=== PATIENT | male | born 1980 | race Caucasian/White ===

== ENCOUNTER 2023-05-08 16:35 | Outpatient (OUT) | payer SELFPAY ==
--- NOTE | 2023-05-08 | XR_ITS ---
The [address] [address] Patient Name: MAIRA WILSON MRN: [id number] date: 1980 Sex: M Assigned Patient Location: RAD Current Patient Location: RAD Accession/Order Number: [id number] Exam Date: 05/08/2023 17:10 Report Date: 05/08/2023 18:18 At the request of: CODEY VÁSQUEZ Procedure: XR chest 2V EXAM: XR chest 2V HISTORY: R07.9; Possible pneumonia COMPARISON: None. TECHNIQUE: Upright PA and lateral chest x-ray FINDINGS: The heart is not enlarged and the vasculature is not distended. No acute infiltrate, effusion or pneumothorax is identified. The osseous structures are grossly intact. XR/XR chest 2V IMPRESSION: No acute infiltrate or evidence of cardiac decompensation. Comparison with a previous study may be helpful in determining the chronicity of these findings. Electronically authenticated by: DOV REINA Date: 05/08/2023 18:18
== END 2023-05-08 16:36 | disposition home or self-care (01) ==
PROVIDERS: PCP Internal Medicine; Visit Provider Physician Assistant
DX: R50.9 Fever, unspecified (principal); R07.9 Chest pain, unspecified; Z87.891 Personal history of nicotine dependence
CPT/HCPCS: 71046

== ENCOUNTER 2025-05-21 13:35 | Outpatient (OUT) | payer BC, SELFPAY ==
--- OUTSIDE RECORDS SUMMARY | 2025-05-21 08:28 | XMS_ITS | Continuity of Care Document ---
Author Organization [facility] Address [address] [place] [address] Phone Care Team Providers Care Advertising Inserter Name Role Phone NO FAMILY, PHYSICIAN Primary Care Provider Alba Etienne APRN Attending Provider Care Teams Patient Care Team Team Status: Active Member Role/Relationship Status Dates PHYSICIAN NO FAMILY Primary Care Provider Active Patient Care Team Team Status: Inactive Member Role/Relationship Status Dates PHYSICIAN NO FAMILY Primary Care Provider Active Start: May 21, 2025 End: May 21, 2025Alba Prakash APRN FOOT SETTER-CAttending ProviderActive Start: May 21, 2025 End: May 21, 2025 Chief Complaint and Reason for Visit Chief Complaint Admit Date feeling under the weather May 21, 2025 1:02pm Reason for Visit Admit Date Cough May 21, 2025 1:02pm Allergies, Adverse Reactions, Alerts Allergen Type Severity Reaction Last Updated Verified Status No Known Allergies Allergy Unknown May 21, 2025 1:04pmYesActive Social History Smoking Status Status Start Date End Date Date of Observa tion Never smoked tobacco (finding) March 06, 2024 2:58pm Observation Status Observation Response Date of Response Legal Sex Male (finding) Sex Assigned At BirthMaleSeptember 1979 Family History Relationship Condition Age at Onset Recorded Date/T reji mother Hypertension Unknown Problems Active Problems Problem Diagnosis/Recorded Date Onset Date Stat us Cough May 21, 2025 1:23pm Unknown A ctive Inactive/Resolved Problems Problem Diagnosis/Recorded Date Onset Date Stat us Acute maxillary sinusitis March 06, 2024 2:09pm Unknown Resolved Contact dermatitis February 12, 2024 2:14pm Unknown Resolved Medications Medication Status Dose Units Route Directions Qty Days Refills S tart Date Stop Date End Date Reason(s) Instructions Adherence Methylprednisolone (Medrol (Yosvany)) 4 mg tablets,dose pa ck Discontinued 0 POper package iguhdrmbte924Jxrqkcuhn 2nd, 2024 11:00pmSe2023 1:51pmPO PER PKG DIRTriamcinolone Acetonide 0.1 % ugdplMhgyxyrirdbv0IJBFPT TOPICALTwice ajuid3392Nlfxfludz2023 11:00pmMarch 06, 2024 1:55pm Contact dermatitis Unspecified contact dermatitis, unspecified causeNo Name (No Known Home Meds) ActiveSe2023 11:00pm Vital Signs Vital Reading Result Reference Range Collection Date/Time Height 68 [in_i] May 21, 2025 1:68sqXoilur11.93 kgDecember 2024 1:05pmBody Dpbdwntecys036.5 [degF]97.6-99.0December 2024 1:05pmHeart Ajrj370 /min 60-100Dece2024 1:05pmOxygen saturation by Pulse uekhgkso59 %95-100 May 21, 2025 1:05pmBP Amvjaqov329 mm[Hg]100-140December 2024 1:05pm BP Ulcclrgpy94 mm[Hg]60-100December 2024 1:05pmBMI (Body Mass Index)24.7 kg/g3Guxduras 2024 1:05pm Advance Directives Advance Directive Response Recorded Date/ Time Advance Directives No February 1:53pm Insurance Providers Guarantor Yann Trujillo Address [address] [facility] [address]ld[place] Info.Home Phone: Payer Group Member ID Coverage Type Subscriber Relationship to Subscriber Effective Date Expiration Date Johnathan MORGAN [id number] L Duston Id: [id number] [address] [facility] [address] Home Phone: Email: Encounters Encounter Location(s) Arrival/Admit Date Discharge/Departure Date Discharge/Departure Disposition Provider(s) Departed Physician/ Provider Office Visit -[facility] May 21, 2025 1:02pm May 21, 2025 1:27pm Discharged to home care or self care (routine discharge) Alba Prakash APRN CNP Recent Diagnosis Onset Date Admit Date Cough Unknown May 21 025 1:02pm Assessments Diagnosis Onset Date Resolution Status Admit Date Cough acuteDecember 2024 1:02pm Plan of Treatment Future Tests Future scheduled test information is unavailable Pending Tests Test Name Ordered Date Scheduled Date XR chest 2V* May 21, 2025 1:23pm Future Visits Future appointment information is unavailable Future Procedures Procedure Name Ordered Date Scheduled Date AMB POC COVID/Flu A/B Ag May 21, 2025 1:1 7pm Future Medications Future medication information is unavailable Patient Instructions Patient instructions are unavailable
--- OUTSIDE RECORDS SUMMARY | 2025-05-21 13:42 | XMS_ITS | CCD ---
Author Organization [facility] Care Team Providers Care Keypunch Operators Supervisor Name Role Phone Kecia Young Unavailable MISC, DR CORDOVA Admitting Unavailable MISC, DR CORDOVA Attending Unavailable MISC, DR CORDOVA Consulting Unavailable HEMCODEY CONDE Attending Unavailable Medications Current Medications MedicationDrug Class(es)DatesSig (Normalized)Sig (Original)Cundiyo (No Known Home Meds) (1 source)Start: 64-67-4382Hz Name (No Known Home Meds) Active March 06, 2024 12:00am Completed/Discontinued Medications MedicationDrug Class(es)DatesSig (Normalized)Sig (Original)methylPREDNISolone 4 mg oral tablet (2 sources)CorticosteroidStart: 02-12-2024 End: 80-18-6750fzuf 1 tablet by mouth onceMethylprednisolone (Medrol (Yosvany)) 4 mg tablets,dose pack Discontinued 0 PO per package directions February 12, 2024 12:00am March 06, 2024 2:51pm PO PER PKG DIRtriamcinolone acetonide 1 mg/ml topical cream (2 sources)CorticosteroidStart: 02-12-2024 End: 34-21-3284Gbwukurmepyzi Acetonide Discontinued 1 APPLIC TOPICAL Twice daily 07 01February 12, 2024 12:00am March 06, 2024 2:55pm Problems Active Problems Problem ClassificationProblemDateDocumented DateEpisodic/ChronicAllergic reactions (4 sources)Contact dermatitis; Translations: [Unspecified contact dermatitis, unspecified cause]79-61-9476WyxjkkcnKymar upper respiratory infections (2 sources)Acute maxillary sinusitis; Translations: [Acute maxillary sinusitis, unspecified]50-83-7359Kcnlance Past or Other Problems Problem ClassificationProblemDateDocumented DateEpisodic/ChronicImmunizations and screening for infectious disease (5 sources)Contact with and (suspected) exposure to other viral communicable diseases; Translations: [Encounter for screening for other viral diseases]Onset: 01-13-2020 Resolved: 12-23-2654LgzyaylaEease infection (1 source)COVID-19Onset: 05-24-2021 Resolved: 05-24-2021 Results Test NameValueInterpretationReference RangeFacilityXR CERVICAL SPINE (4-5 VIEWS) on 77-89-0393XN CERVICAL SPINE (4-5 VIEWS)EXAMINATION: 5 XRAY VIEWS OF THE CERVICAL SPINE 09/28/2020 3:31 pm COMPARISON: None. HISTORY: ORDERING SYSTEM PROVIDED HISTORY: pain to lower c spine upper t spine after injury TECHNOLOGIST PROVIDED HISTORY: pain to lower c spine upper t spine FINDINGS: Vertebral body heights maintained. Cervical lordosis within normal limits. Minimal levoconvex curvature, within normal limits. Normal C1-2 alignment. No significant disc height loss or hypertrophic facet changes. No significant neural foraminal narrowing. Prevertebral soft tissues within normal limits. IMPRESSION: No acute abnormality or significant degenerative changes of the cervical spine. Interpreted by: Mitch Gonzalez MD Signed by: Mitch Gonzalez MD 09/28/20 Final resultNormSelect Medical [facility] Rehabilitation Hospital, Edwin ShawXR KNEE RIGHT (3 VIEWS)on 62-72-4224XB KNEE RIGHT (3 VIEWS)EXAMINATION: THREE XRAY VIEWS OF THE RIGHT KNEE 09/28/2020 3:31 pm COMPARISON: None. HISTORY: ORDERING SYSTEM PROVIDED HISTORY: pain with ambulation TECHNOLOGIST PROVIDED HISTORY: pain with ambulation FINDINGS: Frontal, lateral, and sunrise views of the knee are submitted for review. There is no evidence for acute fracture or dislocation of the knee. No definite patellofemoral joint effusion identified. Bone mineralization is otherwise within normal limits. Overlying soft tissues are unremarkable. IMPRESSION: No acute osseus abnormality of the knee. No fracture or dislocation. Interpreted by: Isael Girard MD Signed by: Isael Girard MD 09/28/20 Final resultNormSelect Medical [facility] Clinic Rehabilitation Hospital, Edwin ShawXR THORACIC SPINE (3 VIEWS)on 09-28-2020 XR THORACIC SPINE (3 VIEWS)EXAMINATION: THREE XRAY VIEWS OF THE THORACIC SPINE 09/28/2020 3:31 pm COMPARISON: None. HISTORY: ORDERING SYSTEM PROVIDED HISTORY: pain to upper t spine after injury TECHNOLOGIST PROVIDED HISTORY: pain to upper t spine FINDINGS: Vertebral body heights maintained. Thoracic kyphosis within normal limits. No significant disc height loss. Minimal dextroconvex curvature, within normal limits. IMPRESSION: No acute abnormality identified of the thoracic spine. Interpreted by: Mitch Gonzalez MD Signed by: Mitch Gonzalez MD 09/28/20 Final resultNormalBucyrus Community Hospital Vital Signs Date TimeVital SignValuePerforming WgrfhlgzdOfsvwvtw82-99-1240 14:53-0400Body bsvthikaxqi56.6 [degF][facility]09-26-2024 14:53-0400Body ocbgze44.14 kgMercy Health [facility]09-26-2024 14:53-0400Diastolic blood mopuajar42 mm[Hg][facility]09-26-2024 14:53-0400 Heart rate85 /[facility]09-26-2024 14:53-4646ElV1% (BldA) [Mass fraction]98 %[facility]09-26-2024 14:53-0400 Systolic blood akragkko124 mm[Hg][facility]09-03-2024 14:57-0400Body vzlabx985.72 cmMercy Health [facility]09-03-2024 14:57-0400Body mass index (BMI) [Ratio]24 kg/c4UqudktzlsMercy Health [facility] 02-12-2024 14:57-0400Body .78 kgMer[facility] Health [facility] 02-12-2024 14:57-0400Diastolic blood pssfqnil91 mm[Hg][facility]09-03-2024 14:57-0400Heart rate78 /[facility] 02-12-2024 14:57-0400Respiratory rate18 /[facility] 02-12-2024 14:57-7017PaY5% (BldA) [Mass fraction]96 %[facility]09-03-2024 14:57-0400Systolic blood nanwhpig419 mm[Hg][facility]12-14-2021 16:30-0500Body .72 Griselda Young Other [facility] Other 12-14-2021 16:30-0500Body mass index (BMI) [Ratio] 21.28 kg/u7Vtxox Ginty Other [facility] Other 12-14-2021 16:30-0500Body tqrdzvyarvf73.2 [degF]Kecia Ginty Other [facility] Other 12-14-2021 16:30-0500Body qicrcj04.5 kgAmber Ginty Other [facility] Other 12-14-2021 16:30-5967XjC4% (BldA) [Mass fraction]99 % Kecia Ginty Other [employer] Other Encounters Encounter DateEncounter TypeCare ProviderFacilityStart: 03-06-2024 End: 38-92-2852vsqdqlkbroTdqatkqdcBarney [facility]'s [facility] Center Work Phone: Start: 03-06-2024 End: 56-51-5966Wmjvumh encounter procedureAt[facility] Work Phone: Start: 02-12-2024 End: 71-46-7086gzmvnytrjlFbnkepumoMagruder Memorial Hospital Work Phone: Start: 02-12-2024 End: 70-26-0193Hmphliu encounter procedureAtrium Health [facility] Work Phone: Start: 05-08-2023 End: 28-81-5683itjlxaqupiMSFYKYeimi Manriuqe AvailableStart: 05-24-2021 End: 86-09-4589hchemwiiwpYuzpw Ginty Other [facility] Other Start: 58-09-4060Rofnet outpatient visit 15 minutes Kecia GintyFPG Urgent Care ClydeStart: 09-28-2020 End: 66-86-9044Iqlacdcui department patient visitAvita Health System [facility] Hospitaltiffany Bradley [facility] Centertart: 01-13-2020 End: 55-31-3949mbjcmnnyggWT DOCTOR MISCFacility:H1 Payers DatePayer CategoryPayerPolicy [id number] Health [id number] Health [id number]-paySelf [id number] Ruston [id number] Social History DateTypeDetailFacilityUnknown if ever smokedAfton [facility] Other Sex Assigned At [facility]ere[facility] Assigned At [facility] [employer] Other Start: 97-61-4000Jal Assigned At [facility] Hospitaltart: 98-78-3834Ntdilas smoking status NHISNever smoked tobacco (finding)[facility] Evaluation note 05-24-2021 Note Date & GmzgMhdqOxfvqunt95-05-6179 Evaluation note* Encounter Date Diagnosis Assessment Notes Treatment Notes Treatment Clinical Notes May, Contact with and (coyle spected) exposure to other viral communicable diseases (ICD-10 - Z20.828) May,OVID- (ICD-10 - U07.1) Rapid COVID test performed in office today. Advised patient that test was positive. Instructed patient to isolate per CDC guidelines for 10 days from symptom onset. May return to work/activities outside home after isolation period as long as symptoms are improving and has been afebrile for 24 hours without use of antipyretic. Advised patient that health dept. will be in contact as results are reported to them. Advised patient that treatment of COVID is with viral supportive care, OTC cold medications, Tylenol/Motrin as needed for body aches/fever. Increase fluids and rest. Encouraged use of cool mist humidifier. Follow-up with PCP to advise of positive result and further management need. Immediate eval for SOB, difficulty, chest pain, fevers that do not break with antipyretic or any other concerning symptoms as reviewed on patient education handout. Patient verbalizes understanding and is agreeable to treatment plan. Patient left in stable condition May,OtherAdditional time spent conducting pre-visit phone call, screening for symptoms, instructions on social distancing, application and removal of PPE, and cleaning of examination room, equipment and supplies was preformed. Patient education given for testing methodology and results. Patient care instructions given in writting by [facility] Care At Home document [employer] Other Evaluation note Note Date & TypeNoteFacilityEvaluation note* Diagnosis Onset Date Resolution Status Contact dermatitis [facility] Work Phone: Evaluation note Note Date & TypeNoteFacilityEvaluation note* Diagnosis Onset Date Resolution Status Contact dermatitis acuteAcute maxillary sinusitisTriHealth McCull[facility] Work Phone: Summary Purpose Family History Relationship Condition Age at Onset Recorded Date/T reji mother Hypertension Unknown Advance Directives Advance Directive Response Recorded Date/ Time Advance Directives No February 2:53pm Chief Complaint and Reason for Visit Chief Complaint est, rash on hands s janet december Reason for Visit Contact dermatitis Chief Complaint est, rash on hands s janet december Nausea/SinusesReason for VisitContact dermatitis Acute maxillary sinusitis Additional Source Comments (unrecognized sect ion and content) No Status Records FoundNo Status Records FoundNo Status Records Found INFORMATION SOURCE (unrecogn ized section and content) DATE CREATED AUTHOR 07/19/2021 [facility] DATE CREATED AUTHOR AUTHOR'S ORGANIZ ATION 06/21/[address] [facility] DATE CREATED AUTHOR AUTHOR'S ORGANIZ ATION 05/10/2023 [facility] EPIC REASON FOR VISIT (unrecogniz ed section and content) #27 BLUE JEEP, FEVER, B/A, C OUGH, RUNNY NOSE, COVID Provider Visit Care Teams (unrecognized sec tion and content) Team Status: Active Member Role Status Dates PHYSICIAN NO FAMILY Primary Care Provider Active Team Status: Inactive Member Role Status Dates PHYSICIAN NO FAMILY Primary Care Provider Active Start: February 12, 2024 End: February 12, 2024Alba Prakash APRN ACID WASHER OPERATOR-CAttending ProviderActive Start: February 12, 2024 End: February 12, 2024 Team Status: Inactive Member Role Status Dates PHYSICIAN NO FAMILY Primary Care Provider Active Start: March 06, 2024 End: March 06, 2024Alba Prakash APRN ACID WASHER OPERATOR-CAttending ProviderActive Start: March 06, 2024 End: March 06, 2024 Goals (unrecognized section and content) Goals may be documented in a n alternate section FOR RECORDS PERTAINING TO PATIENTS WHO ARE OR HAVE BEEN ENROLLED IN A CHEMICAL DEPENDENCY/SUBSTANCEABUSE PROGRAM, SOME INFORMATION MAY BE OMITTED. This clinical summary was aggregated from multiple sources. Caution should be exercised in using it in the provision of clinical care. This summary normalizes information from multiple sources, and as a consequence, information in this document may materially change the coding, format and clinical context of patient data. In addition, data may be omitted in some cases. CLINICAL DECISIONS SHOULD BE BASED ON THE PRIMARY CLINICAL RECORDS. [facility] provides no warranty or guarantee of the accuracy or completeness of information in this document.
--- NOTE | 2025-05-21 13:54 | XR_ITS ---
The [address] [address] Patient Name: MAIRA WILSON MRN: [id number] date: 1980 Sex: M Assigned Patient Location: [facility] Current Patient Location: [facility] Accession/Order Number: [id number] Exam Date: 05/21/2025 13:48 Report Date: 05/21/2025 14:29 At the request of: JOSE ANTONIO CONTRERAS Procedure: XR chest 2V Plain film chest 2 view HISTORY: Cough COMPARISON: 05/08/2023 FINDINGS: SUPPORT DEVICES: None POSTSURGICAL CHANGES: None HEART: Within normal limits PULMONARY [place]: Within normal limits MEDIASTINUM: Unremarkable LUNGS AND PLEURA: No acute lung process, pleural effusion or pneumothorax identified. BONY STRUCTURES: Intact ADDITIONAL FINDINGS None XR/XR chest 2V IMPRESSION: No acute process. Impression dictated by: Cali Burns M.D. 05/21/2025 2:29 PM Dictation Location: [place] [address] Electronically authenticated by: [id number] Date: 05/21/2025 14:29
== END 2025-05-21 13:36 | disposition home or self-care (01) ==
LOC: RAD 13:39
PROVIDERS: PCP Nurse Practitioner Family; Visit Provider Nurse Practitioner Family
DX: R05.9 Cough, unspecified (principal)
CPT/HCPCS: 71046